=== PATIENT | male | born 1965 | race Caucasian/White ===

== ENCOUNTER → 2018-04-09 11:38 | Day surgery (SDC) | payer BC ==
[~2018-04-09 11:38] MED LIST: Acetaminophen TAB* 325 MG PO PRN; Buffered Lidocaine 0.9% SYRIN* 5 ML/SYR SYRINGE INTRADERM ONE; Dexamethasone IV* 4 MG/ML 1 ML (4 MG) ONE; DiMENhydriNATE IV* 50 MG/ML VIAL IV PUSH PRN; Famotidine IV* 10 MG/ML 2 ML (20 mg) IV ONE; Famotidine IV* 10 MG/ML 2 ML (20 mg) ONE; HYDROcodone/ACETAMIN 5-325 MG* 1 TAB PO PRN; Levalbuterol 0.63MG/3ML NEB* UNIT OF USE INH PRN; Midazolam* 1 MG/ML 2 ML VIAL (2 MG) ONE; Mivacurium Chloride* 20 MG/10 ML VIAL IV ONE; Naloxone* 0.4 MG/ML 1 ML VIAL IV PRN; Ondansetron INJ* 2 MG/ML VIAL IV PRN; PROCHLORPERAZINE INJ 5 MG/ML 2 ML VIAL IV PRN; Propofol* 10 MG/ML 20 ML BTL IV PUSH ONE; fentaNYL* 50 MCG/ML 2 ML VIAL (100 MCG VIAL) IV PRN; fentaNYL* 50 MCG/ML 2 ML VIAL (100 MCG VIAL) ONE
[2018-04-09 15:58] VITALS: BP 136/84
--- NOTE | 2018-04-10 02:12 | PRO ---
BRONCHOSCOPY REPORT: DATE OF PROCEDURE: 04/09/18 PROCEDURE PERFORMED: Bronchoscopy with endobronchial ultrasound-guided fine- needle aspiration. PREPROCEDURAL DIAGNOSIS: Lymphadenopathy. ANESTHESIA: General anesthesia. ANESTHESIOLOGIST: Dr. Guillen. DESCRIPTION OF PROCEDURE: Informed consent was obtained from the patient prior to the procedure after all the risks and benefits were thoroughly explained. Appropriate time-out was agreed on by attending staff prior to the procedure. The patient was lying supine on operating room table. SCDs and Bala Hugger was placed. The patient was intubated with size 8.5 endotracheal tube. Flexible Olympus bronchoscope was inserted through ET tube for airway inspection. No endobronchial lesions were noted. The patient noted to have friable mucosa, which was bleeding on contact of bronchoscope and with minimal suction in the left upper lobe take-off. There was no obvious evidence of mucosal irregularity in that area or endobronchial lesions. No secretions were noted. Bronchoscope was then withdrawn and EBUS bronchoscope was inserted. Station 7 was then accessed with 3 passes. Station 7 lymph node was enlarged and measured at 0.9 cm on the ultrasound. Rapid on-site evaluation revealed lymphatic tissue, no malignant cells were noted. Station L4 was then accessed with 2 passes. L4 was enlarged at about 0.7 cm. Rapid on-site evaluation revealed lymphatic tissue, no malignant cells were noted. R4 was found to be enlarged, measured about 0.6 cm. R4 was subsequently accessed with 3 passes. Rapid on-site evaluation revealed lymphatic tissue, no malignant cells were noted. R10 was enlarged and measured at about 1 cm, which was accessed with 4 passes. Rapid on-site evaluation revealed lymphatic tissue, no malignant cells were noted. Specimen was placed in formalin. Specimen was also sent for flow cytometric evaluation. The patient had minimal bleeding. Bronchoscope was then withdrawn. The patient tolerated the procedure well. The patient was extubated and was seen in Recovery in optimal condition. [id number]/[facility] #: [id number] [facility]
== END | disposition home or self-care (01) ==
LOC: OR 11:38
PROVIDERS: ATTEND Internal Medicine
DX: R59.0 Localized enlarged lymph nodes (principal); C43.59 Malignant melanoma of other part of trunk; K21.9 Gastro-esophageal reflux disease without esophagitis
CPT/HCPCS: 88172; 88173; 88177; 88184; 88187; 88188; 88189; 88305; J1100; J2250; J2704; J3010

== ENCOUNTER 2018-05-21 07:17 | Day surgery (SDC) | payer BC ==
[~2018-05-21 07:17] MED LIST changes: -Acetaminophen TAB* 325 MG PO PRN; +Bupivacaine 0.25% EPI 200,000* 30 ML SDV ONE; -Dexamethasone IV* 4 MG/ML 1 ML (4 MG) ONE; -DiMENhydriNATE IV* 50 MG/ML VIAL IV PUSH PRN; -Famotidine IV* 10 MG/ML 2 ML (20 mg) ONE; -HYDROcodone/ACETAMIN 5-325 MG* 1 TAB PO PRN; -Levalbuterol 0.63MG/3ML NEB* UNIT OF USE INH PRN; -Midazolam* 1 MG/ML 2 ML VIAL (2 MG) ONE; -Mivacurium Chloride* 20 MG/10 ML VIAL IV ONE; -Naloxone* 0.4 MG/ML 1 ML VIAL IV PRN; -Ondansetron INJ* 2 MG/ML VIAL IV PRN; -PROCHLORPERAZINE INJ 5 MG/ML 2 ML VIAL IV PRN; -Propofol* 10 MG/ML 20 ML BTL IV PUSH ONE; -fentaNYL* 50 MCG/ML 2 ML VIAL (100 MCG VIAL) IV PRN; -fentaNYL* 50 MCG/ML 2 ML VIAL (100 MCG VIAL) ONE
[2018-05-21] MEDS ORDERED: Propofol* 10 MG/ML 20 ML BTL IV PUSH ONE (07:19)
[2018-05-21] MEDS ORDERED: Ondansetron INJ* 2 MG/ML VIAL ONE (07:19)
[2018-05-21] MEDS ORDERED: Lidocaine 2% PF * 5 ML VIAL ONE (07:19)
[2018-05-21] MEDS ORDERED: Dexamethasone IV* 4 MG/ML 1 ML (4 MG) ONE (07:19)
[2018-05-21] MEDS ORDERED: Cisatracurium* 2 MG/ML MDV 5 ML ONE (07:19)
[2018-05-21] MEDS ORDERED: Midazolam* 1 MG/ML 5 ML VIAL (5 MG) ONE (07:19)
[2018-05-21] MEDS ORDERED: KETAMINE HCL* 50 MG/ML 10 ML VIAL ONE (07:19)
[2018-05-21] MEDS ORDERED: fentaNYL* 50 MCG/ML 2 ML VIAL (100 MCG VIAL) ONE ×2 (07:19→09:46)
[2018-05-21] MEDS ORDERED: Famotidine IV* 10 MG/ML 2 ML (20 mg) ONE (07:23)
[2018-05-21] MEDS ORDERED: ceFAZolin 2 GM in NS PREMIX(*) 2 GM/100 ML BAG IVPB ONE (07:46)
[2018-05-21] MEDS ORDERED: EPHEDrine (Pressors)* 50 MG/ML VIAL ONE (08:26)
[2018-05-21] MEDS ORDERED: Naloxone* 0.4 MG/ML 1 ML VIAL IV PRN (08:40)
[2018-05-21] MEDS ORDERED: Ondansetron INJ* 2 MG/ML VIAL IV PRN (08:40)
[2018-05-21] MEDS ORDERED: fentaNYL* 50 MCG/ML 2 ML VIAL (100 MCG VIAL) IV PRN (08:40)
[2018-05-21] MEDS ORDERED: oxyCODONE/Acetamin 5/325 MG* TAB PO PRN (08:40)
[2018-05-21] MEDS ORDERED: Ketorolac INJ* 30 MG/ML 1 ML VIAL ONE (09:56)
[2018-05-21 11:05] VITALS: BP 156/87
--- NOTE | 2018-05-22 00:58 | OP ---
CC: Dr. Carlos Reyes; Dr. Linda Spencer; Dr. Regine Woody * DATE OF OPERATION: 05/21/18 - SDS DATE OF : 69 SURGEON: Ishan Grace MD BENEFITS SPECIALIST RECRUITER: None. ANESTHESIOLOGIST: Dr. Ronquillo. ANESTHESIA: General anesthetic, local infiltration by the surgeon. PRE-OP DIAGNOSIS: Mediastinal adenopathy. POST-OP DIAGNOSIS: Mediastinal adenopathy. OPERATIVE PROCEDURE: Mediastinoscopy with biopsies. DESCRIPTION OF PROCEDURE: The patient was supine on the operative table. After adequate general anesthetic, compression stockings, Bala Hugger warmer, and intravenous antibiotics, the neck was prepped with antiseptic and draped in a sterile fashion. Local infiltrative anesthesia was administered and approximately 3 cm incision was created maybe 2 fingerbreadths above the sternal notch. Dissection was carried down below the platysma and inferior and superior flaps were created. Then, the strap muscles were divided in the midline. The pretracheal plane was identified and digital dissection was used to develop the plane and then the mediastinoscope was inserted. The mediastinoscope was brought down through the pretracheal plane. Subcarinal space was examined. I did not identify a large lymph nodes in that area. There were large lymph nodes in the right peribronchial and peritracheal regions and biopsies were taken of each of these. They were nice biopsies. They were sent fresh to pathology. Hemostasis was obtained using cautery or Surgicel. The scope was removed. The strap muscles were reapproximated in the midline with 3-0 Vicryl, platysma with 3-0 Vicryl and skin with 5-0 Vicryl followed by Steri-Strips. Local anesthetic was utilized. He tolerated the procedure well. He was awakened and brought to recovery in good condition. No complications. No drains. Pathologic specimens as above. Sponge and instrument counts were correct. Estimated blood loss 10 mL. [id number]/[facility] #: [id number] [facility]
== END 2018-05-21 11:00 | disposition home or self-care (01) ==
LOC: OR 07:17
PROVIDERS: ATTEND Surgery
DX: R59.0 Localized enlarged lymph nodes (principal)
CPT/HCPCS: 88184; 88187; 88188; 88189; 88305; 88312; 88333; 88341; 88342; J0690; J1100; J1885; J2250; J2405; J2704; J3010